=== PATIENT | female | born 1950 | race Caucasian/White ===

== ENCOUNTER 2019-12-26 17:48 | Emergency (ER) | payer MEDICARE ==
[2019-12-26 18:09] VITALS: RESP 18; TEMP 97.6
[2019-12-26] MEDS ORDERED: SODIUM CHLORIDE 0.9% 1,000 ML IV STA (19:03)
--- NOTE | 2019-12-26 19:03 | ED ---
Chest Pain HPI - General Chief Complaint: Recheck/Abnormal Lab/Rx Stated Complaint: lt sided numbness, palpitations Time Seen by Provider: 12/26/19 18:41 Source: patient, RN notes reviewed, old records reviewed Mode of arrival: ambulatory Limitations: no limitations - History of Present Illness Initial Comments: This is a 69-year-old female DF for evaluation of not feeling well. Patient having difficulty describing symptoms and states at this point symptoms are resolved no real significant medical history is active Thursday began having some lightheadedness left sided numbness and tingling in his face left-sided maybe chest pain or discomfort came back and went to the urgent care. No recent illness fever cough or congestion. No recent significant fatigue. Patient denying any current pain MD Complaint: chest pain (Left-sided) -: hour(s) Onset: during rest Pain Location: left chest Pain Radiation: jaw/teeth Severity: moderate Severity scale (1-10): 4 Quality: tightness Consistency: now resolved Improves With: nothing Worsens With: nothing Anginal Symptoms: dyspnea, sense of impending doom Treatments Prior to Arrival: none - Related Data Allergies Allergy/AdvReac Type Severity Reaction Status Date / Time amoxicillin Allergy Unknown Verified 12/26/19 18:02 clavulanic acid Allergy Unknown Verified 12/26/19 18:02 [From Augmentin] codeine Allergy Rapid Verified 12/26/19 18:03 Heart Rate Review of Systems ROS Statement: Those systems with pertinent positive or pertinent negative responses have been documented in the HPI. ROS Other: All systems not noted in ROS Statement are negative. EKG Findings - EKG Comments: EKG Findings:: EKG shows sinus rhythm of 60, CT 240, QRS 84, QTc 412 Past Medical History Past Medical History: Hyperlipidemia, Hypertension History of Any Multi-Drug Resistant Organisms: None Reported Past Surgical History: Appendectomy, Section, Cholecystectomy Past Psychological History: No Psychological Hx Reported Smoking Status: Former smoker Past Alcohol Use History: None Reported Past Drug Use History: None Reported General Exam Limitations: no limitations Course Vital Signs 12/26/19 12/26/19 18:03 19:46 Temperature 97.6 F Pulse Rate 77 62 Respiratory 18 18 Rate Blood Pressure 131/92 128/70 O2 Sat by Pulse 98 97 Oximetry - Reevaluation(s) Reevaluation #1: 12/26/19 20:23 Medical records reviewed Reevaluation #2: 12/26/19 20:24 Patient states she feels well like to be discharged home Reevaluation #3: 12/26/19 20:24 Patient explained results here in the ER and questions are answered patient offered abilities [facility] for further evaluation, patient denies Chest Pain MDM - MDM 69 female with nonspecific complaints believes maybe some stress but she does have CT brain here with his negative x-rays labwork is normal. Patient can be discharged home Disposition Clinical Impression: Palpitations, Headache, Stress reaction Disposition: HOME SELF-CARE Condition: Fair Instructions (If sedation given, give patient instructions): Heart Palpitations (ED) Is patient prescribed a controlled substance at d/c from ED?: No Referrals: Nhan Franco DO [Primary Care Provider] - 1-2 days
--- NOTE | 2019-12-26 19:21 | CT ---
EXAMINATION TYPE: CT brain wo con DATE OF EXAM: 12/26/2019 COMPARISON: None HISTORY: weakness CT DLP: 1121.4 mGycm Automated exposure control for dose reduction was used. Ventricles have normal size. There is no mass effect nor midline shift. There is no sign of intracran ial hemorrhage. Calvarium appears intact. There is no evidence of cerebral edema. IMPRESSION: Head CT scan appears normal for age. Mild atrophy.
--- NOTE | 2019-12-26 19:22 | XR ---
EXAMINATION TYPE: XR chest 2V DATE OF EXAM: 12/26/2019 COMPARISON: NONE HISTORY: Weakness TECHNIQUE: FINDINGS: Heart is normal. There is poorly marginated 2 cm area of increased density over the left up per lobe. This could be some calcified pleural plaque. The other lung thao are clear. There is no p leural effusion. There are no hilar masses. Mediastinum is normal. There are chest leads. IMPRESSION: Left upper lobe density could be some calcified pleural plaque. Normal heart.
[2019-12-26 19:28] LABS: Basophils % (A) 0 %; Eosinophils % (A) 1 %; HGB 15.4 gm/dL (11.4-16.0); Lymphocytes # (A) 1.7 k/uL (1.0-4.8); Lymphocytes % (A) 27 %; MCH 29.6 pg (25.0-35.0); MCHC 33.6 g/dL (31.0-37.0); MCV 88.2 fL (80.0-100.0); Mean Platelet Volume 8.6; Monocytes # (A) 0.5 k/uL (0-1.0); Monocytes % (A) 7 %; Neutrophils # (A) 3.9 k/uL (1.3-7.7); Neutrophils % (A) 61 %; Platelet Count 304 k/uL (150-450); RBC 5.21 m/uL (3.80-5.40); WBC 6.4 k/uL (3.8-10.6)
[2019-12-26 19:37] LABS: Albumin 4.5 g/dL (3.5-5.0); Calcium 9.8 mg/dL (8.4-10.2); Magnesium 2.1 mg/dL (1.6-2.3); Phosphorus 3.5 mg/dL (2.5-4.5); Potassium 4.9 mmol/L (3.5-5.1); Total Bilirubin 0.4 mg/dL (0.2-1.3); Total Protein 7.1 g/dL (6.3-8.2)
[2019-12-26 19:45] LABS: D-Dimer 0.28 mg/L FEU (<0.60); INR 0.9 (<1.2); Partial Thromboplastin Time 24.7 sec (22.0-30.0); Prothrombin Time 9.5 sec (9.0-12.0)
[2019-12-26 19:48] VITALS: BP 128/70; PULSE 62
== END 2019-12-26 21:02 | disposition home or self-care (01) ==
LOC: EC 17:48
DX: F43.9 Reaction to severe stress, unspecified (principal); R00.2 Palpitations; R51 Headache; I10 Essential (primary) hypertension; Z88.0 Allergy status to penicillin; Z88.1 Allergy status to other antibiotic agents; Z88.5 Allergy status to narcotic agent; Z87.891 Personal history of nicotine dependence
CPT/HCPCS: 36415; 70450; 71046; 80053; 83605; 83735; 83880; 84100; 84484; 85025; 85379; 85610; 85730; 93005; 96360; 99285